=== PATIENT | male | born 1985 | race Caucasian/White ===

== ENCOUNTER 2018-07-11 08:20 | Emergency (ER) | payer SELFPAY ==
[2018-07-11 08:38] VITALS: TEMP 98.3; BMI 31.9
[2018-07-11] MEDS ORDERED: KETOROLAC TROMETHAMINE 30 MG/1 ML VIAL IVPUSH ONE (10:01)
[2018-07-11 10:12] LABS: BASO % 0.6 % (0-2.0); EOS % 0.3 % (0-4.5); HEMATOCRIT 46.4 % (35.4-49); HEMOGLOBIN 16.2 GM/dL (11.7-16.9); LYMPH % 15.4 % (8-40); MCH 30.6 pg (25.7-33.7); MCHC 34.9 g/dl (32.0-35.9); MEAN CELL VOLUME 87.8 fl (80-96); MEAN PLT VOLUME 8.3 fl (7.5-11.1); MONO % 6.1 % (3.8-10.2); NEUT % 77.6 % (42.8-82.8); PLATELET COUNT 290 K/MM3 (134-434); RBC 5.29 M/mm3 (4.00-5.60); RDW 13.4 % (11.9-15.9); WHITE BLOOD COUNT 8.6 K/mm3 (4.0-10.0)
[2018-07-11 10:56] LABS: ALBUMIN 4.1 g/dl (3.4-5.0); ALK PHOS 82 U/L (45-117); ANION GAP 10 MMOL/L (8-16); BILIRUBIN,TOTAL 0.6 mg/dL (0.2-1); BLOOD UREA NITROGEN 15 mg/dL (7-18); CALCIUM 8.8 mg/dL (8.5-10.1); CHLORIDE 103 mmol/L (98-107); CO2 27 mmol/L (21-32); CREATININE 1.2 mg/dL (0.55-1.3); GLUCOSE,RANDOM 120 mg/dL (74-106); POTASSIUM 4.5 mmol/L (3.5-5.1); SGOT/AST 21 U/L (15-37); SGPT/ALT 39 U/L (13-61); SODIUM 140 mmol/L (136-145)
[2018-07-11] MEDS ORDERED: SODIUM CHLORIDE 1,000 ML IV STA (11:38)
[2018-07-11] MEDS ORDERED: KETOROLAC TROMETHAMINE 30 MG/1 ML VIAL ONE (11:50)
--- NOTE | 2018-07-11 12:16 | PDOC ---
History of Present Illness - General Chief Complaint: Pain Stated Complaint: ABD PAIN Time Seen by Provider: 07/11/18 08:51 History Source: Patient Exam Limitations: No Limitations - History of Present Illness Travel History: No Initial Comments: 07/11/18 12:09 32-year-old male presents to the emergency room with complaints of right lower quadrant pain for the past 4-5 months worsening severity now spreading to his right upper quadrant and right testicle which he describes as a sharp intermittent pain. Patient denies nausea vomiting fever, chills or any urinary complaints but states has had loose stool with intermittent bright red blood upon wiping. Patient has no other complaints at this time and denies any recent travel, recent illness GI disorders, or weight change. Timing/Duration: reports: getting worse Quality: reports: moderate, sharpness, stabbing Abdominal Pain Onset Location: reports: RLQ Pain Radiation: reports: RUQ, groin Activities at Onset: reports: none Aggravating Factors: improves with: None Alleviating Factors: improves with: None Past History - Travel Traveled outside of the country in the last 30 days: No - Past Medical History Allergies/Adverse Reactions: Allergies Allergy/AdvReac Type Severity Reaction Status Date / Time erythromycin base Allergy Verified 07/11/18 08:34 Home Medications: Ambulatory Orders NK [No Known Home Medication] 07/11/18 COPD: No - Immunization History Immunization Up to Date: Yes - Suicide/Smoking/Psychosocial Hx Smoking History: Never smoked Have you smoked in the past 12 months: Yes If you are a former smoker, when did you quit?: 2013 Hx Alcohol Use: No Drug/Substance Use Hx: No Substance Use Type: None Patient Lives Alone: No Lives with/in: spouse/SO Review of Systems - Review of Systems Able to Perform ROS?: No Is the patient limited Syriac proficient: No Constitutional: No: Symptoms Reported HEENTM: No: Symptoms Reported Respiratory: No: Symptoms reported Cardiac (ROS): No: Symptoms Reported ABD/GI: Yes: Blood Streaked Bowels, Diarrhea, Abdominal cramping. No: Nausea, Vomiting : Yes: Testicular Pain (rt) Musculoskeletal: No: Symptoms Reported Integumentary: No: Symptoms Reported Neurological: No: Symptoms reported *Physical Exam - Vital Signs Last Vital Signs Temp Pulse Resp BP Pulse Ox 98.3 F 101 H 18 147/75 99 07/11/18 08:35 07/11/18 08:35 07/11/18 08:35 07/11/18 08:35 07/11/18 08:35 - Physical Exam General Appearance: Yes: Nourished, Appropriately Dressed. No: Apparent Distress HEENT: positive: EOMI, BEATRICE, TMs Normal, Pharynx Normal. negative: Pale Conjunctivae Neck: positive: Supple Respiratory/Chest: positive: Lungs Clear, Normal Breath Sounds. negative: Respiratory Distress, Accessory Muscle Use Cardiovascular: positive: Regular Rhythm, Tachycardia. negative: Murmur Gastrointestinal/Abdominal: positive: Soft, Tenderness (right lower quad at pelvic border) Male Genitalia: positive: normal genitalia. negative: testicular tenderness Musculoskeletal: negative: CVA Tenderness Integumentary: positive: Normal Color, Warm, Moist Neurologic: positive: Motor Strength 5/5 (ambulatory) ED Treatment Course - LABORATORY CBC & Chemistry Diagram: 07/11/18 09:51 07/11/18 09:51 - ADDITIONAL ORDERS Additional order review: Laboratory Results 07/11/18 07/11/18 09:51 09:51 Sodium 140 Potassium 4.5 Chloride 103 Carbon Dioxide 27 Anion Gap 10 BUN 15 Creatinine 1.2 Creat Clearance w eGFR > 60 Random Glucose 120 H Lactic Acid 3.1 H* Calcium 8.8 Total Bilirubin 0.6 AST 21 ALT 39 Alkaline Phosphatase 82 Total Protein 8.0 Albumin 4.1 07/11/18 09:51 RBC 5.29 MCV 87.8 MCHC 34.9 RDW 13.4 MPV 8.3 Neutrophils % 77.6 Lymphocytes % 15.4 Monocytes % 6.1 Eosinophils % 0.3 Basophils % 0.6 - RADIOLOGY Radiology Studies Ordered: Category Date Time Status ABDOMEN & PELVIS CT WITH CONTR [CT] Stat CT Scan 07/11/18 10:01 Ordered SCROTUM AND CONTENTS US [US] Stat Ultrasound 07/11/18 10:01 Ordered Medical Decision Making - Medical Decision Making 07/11/18 11:27 Chief complaint abdominal pain diarrhea blood-tinged stool for the past 4-5 months but worsening in severity over the past few weeks and this morning was awoken from sleep secondary to pain Exam: Right lower quadrant pain no testicular tenderness no right upper quadrant pain Plan: CBC, comp, lactic acid, urine, testicular ultrasound and abdominal CT Tylenol IV fluids 07/11/18 12:28 Laboratory Tests 07/11/18 07/11/18 07/11/18 09:51 09:51 09:51 WBC 8.6 Hgb 16.2 Hct 46.4 Plt Count 290 Sodium 140 Potassium 4.5 Chloride 103 Carbon Dioxide 27 Anion Gap 10 BUN 15 Creatinine 1.2 Creat Clearance w eGFR > 60 Random Glucose 120 H Lactic Acid 3.1 H* Total Bilirubin 0.6 AST 21 ALT 39 Blood cultures added second lactic acid ordered along with chest x-ray 07/11/18 16:[address] shows no evidence of appendicitis. There is possible minimal to mild concentric wall thickening along the terminal ileum and ascending colon? Mild enterocolitis versus representing artifactual thickening due to limited distention. No evidence of acute diverticulitis. Nonspecific 0.9 renal lower pole in choke cortical hypodensity is seen. Recommending a 3 month follow-up MRI or CT with and without contrast is essential to document stability and lack of developing pathology. 07/11/18 17:39 Laboratory Tests 07/11/18 07/11/18 16:00 17:07 Lactic Acid 1.0 Urine Protein 1+ H Urine Blood Trace-intact H Urine Nitrite Negative Ur Leukocyte Esterase Negative 07/11/18 18:12 Case discussed with GI Dr. Berry who recommends follow-up in the office. Patient to be discharged home with Flagkahlil and Goranro. *DC/Admit/Observation/Transfer Diagnosis at time of Disposition: Colitis - Discharge Dispostion Disposition: HOME Condition at time of disposition: Good - Referrals Referrals: John Berry MD [Staff Physician] - - Patient Instructions Printed Discharge Instructions: DI for Colitis Additional Instructions: Please take antibiotics as prescribed until completed. Please follow up with GI specialist. Please also read over CAT scan and have a follow-up appointment in 3 months to repeat imaging - Post Discharge Activity
[2018-07-11 17:35] LABS: PH,URINE 5.5 (5.0-8.0); URINE APPEARANCE Clear; URINE BILIRUBIN Negative (<2.0 mg/dL); URINE COLOR Yellow; URINE GLUCOSE (UA) Negative (NEGATIVE); URINE KETONE Trace (NEGATIVE); URINE LEUK ESTERASE Negative (NEGATIVE); URINE NITRITE Negative (NEGATIVE); URINE PROTEIN 1+ (NEGATIVE); URINE UROBILINOGEN 0.2 mg/dL (0.2-1.0)
[2018-07-11 18:41] VITALS: BP 132/72; PULSE 81
== END 2018-07-11 18:41 | disposition home or self-care (01) ==
LOC: JER 08:20
PROC: 3E0337Z Introduction of Electrolytic and Water Balance Substance into Peripheral Vein, Percutaneous Approach (ICD-10-PCS; principal; 2018-07-11)
PROC: 3E0333Z Introduction of Anti-inflammatory into Peripheral Vein, Percutaneous Approach (ICD-10-PCS; 2018-07-11)
DX: K52.9 Noninfective gastroenteritis and colitis, unspecified (principal)
CPT/HCPCS: 36415; 74177-TC; 76870-TC; 80053; 81003; 81015; 83605; 85025; 87040; 87086; 99283-25; J7030; Q9967

== ENCOUNTER 2018-08-17 18:31 | Emergency (ER) | payer SELFPAY ==
[2018-08-17 18:50] VITALS: BP 123/75; PULSE 84; TEMP 98.4; BMI 31.4
--- NOTE | 2018-08-17 18:51 | PDOC ---
Rapid Medical Evaluation Chief Complaint: Non EmpBld/Body Flud Exposure Medical Evaluation: Allergies Allergy/AdvReac Type Severity Reaction Status Date / Time erythromycin base Allergy Verified 08/17/18 18:48 08/17/18 18:49 pt c/o: wants to be tested for HIV, pt states had rotator cuff sx earlier this month and then read a news story which stated individuals that had sx at this facility were + for hiv, Pt has no complaints otherwise Exam: vss Plan: order set for hiv ordered Discharge Disposition - Diagnosis Laboratory test - Referrals - Patient Instructions
--- NOTE | 2018-08-17 20:59 | PDOC ---
History of Present Illness - General Chief Complaint: Non EmpBld/Body Flud Exposure Stated Complaint: EVALUATION Time Seen by Provider: 08/17/18 18:53 History Source: Patient Exam Limitations: No Limitations Past History - Past Medical History Allergies/Adverse Reactions: Allergies Allergy/AdvReac Type Severity Reaction Status Date / Time erythromycin base Allergy Verified 08/17/18 18:48 Home Medications: Ambulatory Orders NK [No Known Home Medication] 08/17/18 COPD: No - Immunization History Immunization Up to Date: Yes - Suicide/Smoking/Psychosocial Hx Smoking History: Never smoked Have you smoked in the past 12 months: Yes If you are a former smoker, when did you quit?: 2013 Hx Alcohol Use: No Drug/Substance Use Hx: No Substance Use Type: None *Physical Exam - Vital Signs Last Vital Signs Temp Pulse Resp BP Pulse Ox 98.4 F 84 18 123/75 97 08/17/18 18:49 08/17/18 18:49 08/17/18 18:49 08/17/18 18:49 08/17/18 18:49 - Physical Exam General Appearance: No: Apparent Distress Respiratory/Chest: positive: Lungs Clear, Normal Breath Sounds. negative: Respiratory Distress Cardiovascular: positive: Regular Rhythm, Regular Rate, S1, S2. negative: Murmur Gastrointestinal/Abdominal: positive: Normal Bowel Sounds, Soft. negative: Tender, Distended, Guarding, Rebound Integumentary: positive: Normal Color Neurologic: positive: Fully Oriented, Alert, Normal Mood/Affect Moderate Sedation - Procedure Monitoring Vital Signs: Procedure Monitoring Vital Signs Temperature 98.4 F 08/17/18 18:49 Pulse Rate 84 08/17/18 18:49 Respiratory Rate 18 08/17/18 18:49 Blood Pressure 123/75 08/17/18 18:49 O2 Sat by Pulse Oximetry (%) 97 08/17/18 18:49 ED Treatment Course - ADDITIONAL ORDERS Additional order review: Laboratory Results 08/17/18 19:00 ALT 46 Medical Decision Making - Medical Decision Making 32 y/o M with no sig pmh presents with wanting testing for HIV and hepatitis. States he recently had R shoulder surgery done at [facility] in [place] and a news article article came out recently stating that patient treated there recently may have been exposed to HIV or hep B and that hospital has been closed down. Patient denies any complaints HIV negative Hep pending - will placed in call book so patient can get results for those 08/17/18 20:55 *DC/Admit/Observation/Transfer Diagnosis at time of Disposition: Laboratory test - Discharge Dispostion Disposition: HOME Condition at time of disposition: Stable - Referrals - Patient Instructions Additional Instructions: You were tested negative for HIV Your hepatitis panel is pending You will be called regarding the results of that Return to ED for any concerning symptoms - Post Discharge Activity Forms/Work/School Notes: Back to Work
[2018-08-19 03:14] LABS: HBSAG SCREEN Negative (Negative); HEP B CORE AB, TOT Negative (Negative)
== END 2018-08-17 21:04 | disposition home or self-care (01) ==
LOC: JERFT 18:31
DX: Z11.4 Encounter for screening for human immunodeficiency virus [HIV] (principal)
CPT/HCPCS: 36415; 84460; 86704; 86706; 86708; 86803; 87340; 87389; 99281-25

== ENCOUNTER 2020-04-16 11:12 | Emergency (ER) | payer OTHER ==
[2020-04-16 11:17] VITALS: TEMP 98; BMI 29.6
[2020-04-16 12:40] LABS: BASO % 0.9 % (0-2.0); HEMATOCRIT 44.3 % (35.4-49); LYMPH % 20.9 % (8-40); MCH 29.4 pg (25.7-33.7); MCHC 33.9 g/dl (32.0-35.9); MEAN CELL VOLUME 86.6 fl (80-96); MEAN PLT VOLUME 7.8 fl (7.5-11.1); MONO % 8.3 % (3.8-10.2); NEUT % 67.9 % (42.8-82.8); PLATELET COUNT 261 K/MM3 (134-434); RBC 5.12 M/mm3 (4.00-5.60); RDW 13.4 % (11.9-15.9); WHITE BLOOD COUNT 6.7 K/mm3 (4.0-10.0)
[2020-04-16 12:56] LABS: BILIRUBIN,TOTAL 0.5 mg/dL (0.2-1); BLOOD UREA NITROGEN 19.9 mg/dL (7-18); CREATININE 0.9 mg/dL (0.55-1.3); POTASSIUM 4.1 mmol/L (3.5-5.1); TOT PROT 7.5 g/dl (6.4-8.2)
--- NOTE | 2020-04-16 13:03 | PDOC ---
Documentation entered by Eliu Dong SCRIBE, acting as scribe for Thee Davis MD. Thee Davis MD: This documentation has been prepared by the Iker mora Alexis, SCRIBE, under my direction and personally reviewed by me in its entirety. I confirm that the documentation accurately reflects all work, treatment, procedures, and medical decision making performed by me. History of Present Illness - General Chief Complaint: Rectal Bleed Stated Complaint: rectal bleed Time Seen by Provider: 04/16/20 11:34 History Source: Patient Exam Limitations: No Limitations - History of Present Illness Initial Comments: 04/16/20 12:49 The patient is a 34 year old male with a significant past medical history of DM and colitis who presents to the emergency department for evaluation of bleeding hemorrhoids that began two weeks ago. The patient reports passing bright red blood with every BM. Pt states the stool itself is brown. He endorses constant rectal pain for the past two weeks. The patient notes using Prep H to no relief. He reports a less severe episode of hemorrhoids about one year ago. The patient denies chest/abdominal/back pain, cough, and shortness of breath. Denies fever, chills, nausea, vomiting, and/or any symptoms. Denies any other symptoms. Allergies: erythromycin base Social Hx: The patient reports he is a previous smoker. Surgical Hx: R shoulder surgery done at [facility] in [place] Past History - Medical History Allergies/Adverse Reactions: Allergies Allergy/AdvReac Type Severity Reaction Status Date / Time erythromycin base Allergy Verified 04/16/20 11:17 Home Medications: Ambulatory Orders Docusate Sodium [Colace -] 100 mg PO DAILY #30 capsule 04/16/20 Phenyleph/Mineral Oil/Petrolat [Preparation H Ointment] 1 applic RC BID #1 tube 04/16/20 Sennosides [Senna] 2 tab PO DAILY #60 tablet 04/16/20 COPD: No Diabetes: Yes - Immunization History Immunization Up to Date: Yes - Psycho-Social/Smoking History Smoking History: Never smoked Have you smoked in the past 12 months: Yes If you are a former smoker, when did you quit?: 2014 - Substance Abuse Hx (Audit-C & DAST Scrn) How often the patient has a drink containing alcohol: Never Score: In Men: 4 or > Positive; In Women: 3 or > Positive: 0 Screen Result (Pos requires Nsg. Audit-10AR): Negative Review of Systems - Review of Systems Able to Perform ROS?: Yes Comments:: 04/16/20 12:49 GENERAL/CONSTITUTIONAL: No fever or chills. No weakness. HEAD, EYES, EARS, NOSE AND THROAT: No change in vision. No ear pain or discharge. No sore throat. CARDIOVASCULAR: No chest pain, no shortness of breath, no loss of consciousness RESPIRATORY: No cough, wheezing, or hemoptysis. GASTROINTESTINAL: +bleeding hemorrhoids, rectal pain, No nausea, vomiting, diarrhea or constipation. GENITOURINARY: No dysuria, frequency, or change in urination. MUSCULOSKELETAL: No joint or muscle swelling or pain. No neck or back pain. SKIN: No rash NEUROLOGIC: No vertigo, no change in strength/sensation. ENDOCRINE: No increased thirst. No abnormal weight change. HEMATOLOGIC/LYMPHATIC: No anemia, easy bleeding, or history of blood clots. ALLERGIC/IMMUNOLOGIC: No hives or skin allergy. All Other Systems: Reviewed and Negative *Physical Exam - Vital Signs Last Vital Signs Temp Pulse Resp BP Pulse Ox 98 F 54 L 18 137/85 97 04/16/20 11:14 04/16/20 11:14 04/16/20 11:14 04/16/20 11:14 04/16/20 11:14 - Physical Exam 04/16/20 11:42 "GENERAL: Awake, alert, and fully oriented, in no acute distress. HEAD: No signs of trauma EYES: PERRLA, EOMI, sclera anicteric, conjunctiva clear ENT: Auricles normal inspection, hearing grossly normal, nares patent, oropharynx clear without exudates. Moist mucosa NECK: Nontender, no stepoffs, Normal ROM, supple, no lymphadenopathy, JVD, or masses LUNGS: Breath sounds equal, clear to auscultation bilaterally. No wheezes, and no crackles HEART: Regular rate and rhythm, normal S1 and S2, no murmurs, rubs or gallops ABDOMEN: Soft, nontender, normoactive bowel sounds. No guarding, no rebound. No masses EXTREMITIES: Normal range of motion, no edema. No clubbing or cyanosis. No cords, erythema, or tenderness NEUROLOGICAL: Cranial nerves II through XII intact. 5/5 strength and sensation in all extremities, Normal speech, normal gait, normal cerebellar function SKIN: Warm, Dry, normal turgor, no rashes or lesions noted." RECTAL: + 3 external hemorrhoids, no active bleeding ED Treatment Course - LABORATORY CBC & Chemistry Diagram: 04/16/20 12:25 04/16/20 12:25 Medical Decision Making - Medical Decision Making 04/16/20 13:17 34 M with external hemorrhoids. No active bleed, no evidence of lower GI bleed. - Labs 04/16/20 13:21 Labs wnl Will DC with stool softeners, preparation H, sitz baths, and GI f/u Pt is well appearing, with normal vitals. Clinically stable for DC at this time. I discussed the physical exam findings, ancillary test results and final diagnoses with the patient. I answered all of the patient's questions. The patient was satisfied with the care received and felt comfortable with the discharge plan and treatment plan. The patient agrees to follow up with the primary care physician within 24-72 hours. Discharge - Discharge Information Problems reviewed: Yes Clinical Impression/Diagnosis: External hemorrhoid, Rectal pain, BRBPR (bright red blood per rectum) Disposition: HOME - Additional Discharge Information Prescriptions: Docusate Sodium [Colace -] 100 mg PO DAILY #30 capsule Phenyleph/Mineral Oil/Petrolat [Preparation H Ointment] 1 applic RC BID #1 tube Sennosides [Senna] 2 tab PO DAILY #60 tablet - Follow up/Referral Referrals: Lamar Singh MD [Staff Physician] - - Patient Discharge Instructions Patient Printed Discharge Instructions: DI for Hemorrhoids Additional Instructions: Take the stool softeners as prescribed to reduce straining during bowel movements. Use the preparation H ointment twice daily. Use a Sitz bath twice daily to alleviate your pain. If you experience worsening bleeding, pain, fevers, or any other concerning symptoms, return to the ER immediately. Otherwise, follow up with a GI doctor within 1 week for further evaluation. Call the number provided to make an appointment. - Post Discharge Activity
[2020-04-16 13:38] VITALS: BP 132/90; PULSE 87
== END 2020-04-16 13:38 | disposition home or self-care (01) ==
LOC: JER 11:12
DX: K64.8 Other hemorrhoids (principal); K62.5 Hemorrhage of anus and rectum
CPT/HCPCS: 36415; 80053; 85025; 99283-25

== ENCOUNTER 2021-05-09 13:36 | Emergency (ER) | payer OTHER ==
[2021-05-09 14:15] VITALS: BP 126/86; PULSE 86; TEMP 98.6; BMI 30.4
== END 2021-05-09 15:42 | disposition home or self-care (01) ==
LOC: JER 13:36
DX: Z11.52 Encounter for screening for COVID-19 (principal)
CPT/HCPCS: 99283-25

== ENCOUNTER 2021-06-02 13:13 | Emergency (ER) | payer OTHER ==
[2021-06-02 13:50] VITALS: BP 135/90; PULSE 114; TEMP 97.7; BMI 30.1
== END 2021-06-02 14:52 | disposition home or self-care (01) ==
LOC: JER 13:13
DX: J06.9 Acute upper respiratory infection, unspecified (principal)
CPT/HCPCS: 87804; 87880; 99283-25; C9803; U0003; U0005

== ENCOUNTER 2024-08-27 07:46 | Emergency (ER) | payer OTHER ==
[2024-08-27 07:53] VITALS: BP 120/81; PULSE 97; RESP 20; TEMP 100.9; BMI 25.5
[2024-08-27] MEDS ORDERED: IBUPROFEN 400 MG TABLET (FP) PO ONE (08:49)
[2024-08-27] MEDS: IBUPROFEN 400 MG TABLET (FP) PO ONE (08:52)
[2024-08-27] MEDS ORDERED: guaiFENesin 200 MG/10 ML 10 ML UNIT-DOSE CUPS PO ONE (09:58)
[2024-08-28 21:29] LABS: HIV INTERPRETATION NEGATIVE (NEGATIVE)
== END 2024-08-27 10:54 | disposition home or self-care (01) ==
LOC: JER 07:46
DX: R50.81 Fever presenting with conditions classified elsewhere (principal); J10.1 Influenza due to other identified influenza virus with other respiratory manifestations; Z20.822 Contact with and (suspected) exposure to COVID-19
CPT/HCPCS: 0241U-QW; 36415; 86803; 87389; 93005; 93010; 99284-25